=== PATIENT | male | born 1955 | race Caucasian/White ===

== ENCOUNTER 2017-01-19 19:25 | Emergency (ER) | payer BC ==
[~2017-01-19] VITALS: Ht 182.9 cm; Wt 83.1 kg
[2017-01-19 19:32] VITALS: TEMP 36.9; Ht 182.9 cm; Wt 83.1 kg
[2017-01-19] MEDS ORDERED: PROPARACAINE HCL 0.5% OP SOLN 15 ML BTL OP STA (19:53)
[2017-01-19 20:44] VITALS: BP 144/80; PULSE 74; O2SAT 96
[2017-01-19] MEDS ORDERED: CIPROFLOXACIN HCL 0.3% OP SOLN 2.5 ML BTL OP ONE (20:45)
--- NOTE | 2017-01-19 22:00 | EMERGENCY ROOM VISIT NOTE ---
History First contact with patient: 19:47 Chief Complaint: EYE PAIN Stated Complaint: LEFT EYE IRRITATION History of Present Illness The patient is a 61 year old male who presents to the Emergency Room with complaints of left eye pain for the past 3 days. The patient was grinding metal over the weekend, and believes he may have gotten something into his eye. He does have a foreign body sensation. He has not had significant drainage or discharge from the eye. He attempted to flush the eye, however this did not improve or worsen his symptoms. He does not have vision changes. No fever or chills. The patient is up-to-date on his tetanus and rates his current discomfort a 5/10. Review of Systems More than 10 systems were reviewed and otherwise negative with the exception of history of present illness. Past Medical/Surgical History No chronic medical disease Family History No pertinent family history Social History Smoking Status: Never Smoker Housing Status: lives with family Current/Historical Medications No Active Prescriptions or Reported Meds Allergies Coded Allergies: No Known Allergies (Unverified , 01/19/17) Physical Exam Vital Signs Date Time Temp Pulse Resp B/P Pulse Ox O2 Delivery O2 Flow Rate FiO2 01/19/17 20:44 74 18 144/80 96 Room Air 01/19/17 19:32 36.9 69 16 153/103 97 Room Air Right Eye Acuity: 20/20 with glasses Left Eye Acuity: 20/25 with glasses Pain Rating (0-10): 1.0 Physical Exam VITALS: Vitals are noted on the nurse's note and reviewed by myself. Vital signs stable. Visual acuity as above GENERAL: Well-developed, well-nourished, white male, who is in no acute distress and resting comfortably. Patient is cooperative with the examination. HEAD: Normocephalic atraumatic. EARS: External ear normal. External auditory canals clear, tympanic membranes pearly caicedo without erythema or effusion bilaterally. EYES: Pupils equal round and reactive to light and accommodation. Conjunctivae without injection, sclerae without icterus. Extraocular movements intact. The left eye has a small metallic-appearing foreign body at 11:00. After removal there is a small corneal abrasion in the area of previous foreign body. No other significant abrasion noted. NOSE: Patent, turbinates without inflammation or discharge. MOUTH: Mucous membranes moist. Tonsils are not enlarged. Pharynx without erythema, blood, or exudate. Uvula midline. Airway patent. NECK: Supple without nuchal rigidity. No lymphadenopathy. No thyromegaly. Cervical spine is nontender. HEART: Regular rate and rhythm without murmurs gallops or rubs. LUNGS: Clear to auscultation bilaterally without wheezes, rales or rhonchi. No retractions or accessory muscle use. Medical Decision & Procedures Medications Administered Medications (Trade) Dose Ordered Sig/Jennifer Route Start Time Stop Time Status Last Admin Dose Admin Ciprofloxacin HCl (Ciprofloxacin 0.3% Op Soln) 2 drops NOW ONCE OP 01/19/17 20:45 01/19/17 20:46 DC 01/19/17 20:50 2 DROPS Procedure Foreign body removal Alcaine 2 drops were placed in the patient's left eye. A slit lamp exam was performed and does confirm a foreign body 11:00. Verbal consent was obtained to perform the procedure. The metallic foreign body was removed using a tuberculin needle and cotton swab. Ciloxan two drops was placed in the patient' s left eye. The patient tolerated this well without complication. ED Course Physical exam and history were performed. Nursing notes and EMR were reviewed. Patient appears to have a foreign body in his left eye. His tetanus is up-to- date. The foreign body was easily removed utilizing the slit lamp and a tuberculin needle with cotton swab. The patient tolerated this well. He was given Cipro eyedrops with instructions to use these for the next several days. He is to follow-up with his eye doctor with any ongoing or persistent symptoms. He was otherwise invited back to the ER with any new, worsening, or concerning symptoms. The chart was completed utilizing [employer] Speech Voice Recognition Software. Grammatical errors, random word insertions, pronoun errors, and incomplete sentences are an occasional consequence of this system due to software limitations, ambient noise, and hardware issues. Any formal questions or concerns about the content, text, or information contained within the body of this dictation should be directly addressed to the provider for clarification. . Medical Decision Differential diagnosis includes, but is not limited to: Corneal abrasion, laceration, foreign body, glaucoma, and others Impression Primary Impression: Foreign body in eyeball, left Additional Impression: Corneal abrasion, left Departure Information Dispostion Home / Self-Care Condition GOOD Prescriptions No Active Prescriptions or Reported Meds Forms HOME CARE DOCUMENTATION FORM, IMPORTANT VISIT INFORMATION Patient Instructions [facility] Additional Instructions You were seen and evaluated today on an emergency basis only. This is not a substitute for, or an effort to provide, complete comprehensive medical care. It is not possible to recognize and treat all injuries or illnesses in a single emergency department visit. For this reason it is recommended that you followup with your eye doctor with ongoing or persistent symptoms over the next one to 2 days. Use Ciloxan Eye Drops: Instill 1-2 drops into the conjunctival sac every 2 hours while awake for 2 days and 1-2 drops every 4 hours while awake for the next 5 days You are welcome to return to the emergency department anytime with new, worsening, or concerning symptoms. Problem Qualifiers
== END 2017-01-19 21:05 | disposition home or self-care (01) ==
LOC: C.EDB 19:27 → C.EDD 21:05
DX: T15.02XA Foreign body in cornea, left eye, initial encounter (principal); X58.XXXA Exposure to other specified factors, initial encounter; Y93.89 Activity, other specified